=== PATIENT | male | born 1960 | race Caucasian/White ===

== ENCOUNTER 2017-12-09 23:30 | Emergency (ER) | payer OTHER ==
[~2017-12-09] VITALS: Ht 177.8 cm; Wt 97.5 kg
[~2017-12-09 23:30] MED LIST: ATENOLOL25 M1 PO; AUGMENTIN 875 M1 TAB PO; CITALOPRAM HBR20 MG PO; HYDROXYZINE50 MG PO; KEFLEX500 MG PO; LIPITOR10 M1 PO; LISINOPRIL30 M1 PO; SMZ-TMP 800 MG-1 TAB PO; TRAMADOL50 MG PO
--- NOTE | 2017-12-09 23:35 | ED PSYCHIATRIC COMPLAINT ---
History of Present Illness General Chief Complaint: Psychiatric Related Complaint Stated Complaint: BIBA +SI Source: patient, old records, EMS Exam Limitations: no limitations Vital Signs & Intake/Output Vital Signs & Intake/Output Vital Signs Date Time Temp Pulse Resp B/P B/P Pulse O2 O2 Flow FiO2 Mean Ox Delivery Rate 12/11 0754 98.0 86 18 155/83 98 12/09 2351 98.4 78 16 147/91 98 ED Intake and Output 12/10 0000 12/09 1200 Intake Total Output Total Balance Patient 215 lb Weight Allergies Coded Allergies: NO KNOWN ALLERGIES (11/10/14) Triage Nurses Notes Reviewed? yes Onset: Gradual Duration: week(s):, waxing and waning Timing: recent history Severity: moderate Associated Symptoms: anxiety, suicidal ideation HPI: 56 YO gentleman in prior good health brought in on police PEER for suicidal ideation. Per the medics, his called due to suicidality. He shares, "I am really stressed out... I'm in a bag marriage.... I don't have any money problems... I' ve been drinking just like any 56 year old male...." He denies illicit drugs. Per the medics, he has guns that were removed from the home. He has never been admitted for a psychiatric illness. He is otherwise well. (Darian PHILLIPS,Cornel Dunbar) Reconcile Medications Atenolol 25 MG TABLET 1 TAB PO DAILY BP (Reported) Atorvastatin Calcium (Lipitor) 10 MG TABLET 1 TAB PO DAILY CHOLESTEROL ( Reported) Citalopram Hydrobromide (Citalopram HBr) 20 MG TABLET 1 TAB PO DAILY MENTAL HEALTH (Reported) Lisinopril 30 MG TABLET 2 TAB PO DAILY BP (Reported) (Abbe Turcios MD) Past History Travel History Traveled to [place] past 21 day No Medical History Any Pertinent Medical History? see below for history Neurological: NONE EENT: NONE Cardiovascular: hypertension, hyperlipidemia Respiratory: NONE Gastrointestinal: NONE Hepatic: NONE Renal: NONE Musculoskeletal: NONE Psychiatric: NONE Endocrine: NONE Blood Disorders: NONE Cancer(s): NONE RADIO BROADCASTER/Reproductive: NONE Tetanus Vaccine: 12/07/14 Surgical History Surgical History: N Psychosocial History What is your primary language Croatian Family History Hx Contributory? No (Darian PHILLIPS,Cornel Dunbar) Review of Systems Review of Systems Constitutional: Reports: no symptoms. EENTM: Reports: no symptoms. Respiratory: Reports: no symptoms. Cardiovascular: Reports: no symptoms. GI: Reports: no symptoms. Genitourinary: Reports: no symptoms. Musculoskeletal: Reports: no symptoms. Skin: Reports: no symptoms. Neurological/Psychological: Reports: no symptoms. Hematologic/Endocrine: Reports: no symptoms. Immunologic/Allergic: Reports: no symptoms. All Other Systems: Reviewed and Negative (Darian PHILLIPS,Cornel Dunbar) Physical Exam Physical Exam General Appearance: well developed/nourished, mild distress Head: atraumatic Eyes: Bilateral: normal appearance. Ears, Nose, Throat: normal pharynx, normal ENT inspection, hearing grossly normal Neck: normal inspection, supple Respiratory: normal breath sounds Cardiovascular: regular rate/rhythm Gastrointestinal: soft, non-tender Extremities: normal range of motion Neurological/Psychiatric: no motor/sensory deficits, awake, anxious, oriented x 3 Appearance/Memory/Insight: appropriate insight Behavoir/Eye Contact/Speech: cooperative Thoughts/Hallucinations: no apparent hallucination Skin: intact, normal color, warm/dry SAD PERSONS SAD PERSONS Response Value Male Sex? yes 1 Age <19 or >45 years? yes 1 Depression/Hopelessness? yes 2 Excessive Ethanol/Drug Use? yes 1 Rational Thinking Loss? yes 2 Social Support? has no support 1 Total 8 SAD PERSONS Done? yes (Darian PHILLIPS,Cornel Dunbar) Progress Differential Diagnosis: depression, etoh, bipolar vs other. Plan of Care: Orders Procedure Date/time Status Regular Diet 12/10 B Active EKG 12/10 0002 Active Continuous Observation Monitor 12/10 2335 Active URINE DRUG SCREEN FOR ER ONLY 12/10 2335 Complete ETHANOL 12/10 2335 Complete COMPREHENSIVE METABOLIC PANEL 12/10 2335 Complete CBC WITHOUT DIFFERENTIAL 12/10 2335 Complete ED CRISIS PSYCH CONSULT 12/10 2335 Active Laboratory Tests 12/10/17 0035: Urine Opiates Screen < 100, Methadone Screen < 40, Barbiturate Screen < 60, Ur Phencyclidine Scrn < 6.00, Amphetamines Screen 134, U Benzodiazepines Scrn < 85, Urine Cocaine Screen < 50, Urine Cannabis Screen < 5.00 12/10/17 0027: Anion Gap 13, Estimated GFR > 60, BUN/Creatinine Ratio 14.0, Glucose 130 H, Calcium 9.4, Total Bilirubin 0.4, AST 48, ALT 84 H, Alkaline Phosphatase 72, Total Protein 7.1, Albumin 4.3, Globulin 2.8, Albumin/Globulin Ratio 1.5, CBC w Diff NO MAN DIFF REQ, RBC 4.43 L, MCV 95.5 H, MCH 33.6 H, MCHC 35.2, RDW 13.1 , MPV 8.2, Gran % 72.6, Lymphocytes % 16.5 L, Monocytes % 9.0, Eosinophils % 1.3, Basophils % 0.6, Absolute Granulocytes 4.8, Absolute Lymphocytes 1.1 L, Absolute Monocytes 0.6, Absolute Eosinophils 0.1, Absolute Basophils 0, Serum Alcohol 107.0 Initial ED EKG: pt declines (Darian PHILLIPS,Cornel Dunbar) Departure Departure Condition: Stable Clinical Impression Primary Impression: Depression Secondary Impressions: Alcohol intoxication Referrals: Patricia Griffith MD (PCP/Family) Departure Forms: Customer Survey General Discharge Information Comments pt signed out to dr. turcios 12/10/17, 7am, pending crises evaluation. (Darian PHILLIPS,Cornel Dunbar) Departure Disposition: HOME OR SELF CARE (Kali PHILLIPS,Abbe)
[2017-12-10 00:38] LABS: ABSOLUTE BASOPHIL COUNT 0 /CUMM (0.0-0.2); ABSOLUTE EOSINOPHIL COUNT 0.1 /CUMM (0.0-0.7); ABSOLUTE GRANULOCYTE CT 4.8 /CUMM (1.4-6.5); ABSOLUTE LYMPH COUNT 1.1 /CUMM (1.2-3.4); ABSOLUTE MONOCYTE COUNT 0.6 /CUMM (0.10-0.60); BASOPHIL % 0.6 % (0.0-2.0); EOSINOPHIL % 1.3 % (0-5); GRANULOCYTE % 72.6 % (42.2-75.2); HEMATOCRIT 42.3 % (42-52); MEAN CORPUSCULAR HGB 33.6 PG (27.0-31.0); MEAN CORPUSCULAR HGB CONC 35.2 G/DL (33.0-37.0); MEAN CORPUSCULAR VOLUME 95.5 FL (80.0-94.0); MEAN PLATELET VOLUME 8.2 FL (7.4-10.4); PLATELET COUNT 259 /CUMM (130-400); RBC DISTRIBUTION WIDTH 13.1 % (11.5-14.5); RED BLOOD CELL CT 4.43 /CUMM (4.70-6.10); WHITE BLOOD CELL COUNT 6.6 /CUMM (4.8-10.8)
[2017-12-10 08:54] VITALS: BP 155/83
--- NOTE | 2017-12-10 12:34 | ED PSYCH CRISIS CONSULTATION ---
Crisis Consult Basic Assessment Date of Consult: 12/10/17 Responsible Person/Accompanied By: self/biba/[employer] PE[employer] Insurance Authorization: Insurance #1: Insurance name: OUT OF STATE KEITH Phone number: Policy number: [id number] Group number: [id number] Authorization number: ED Provider: Patient's ED Provider: Darian PHILLIPS,Cornel Dunbar Primary Care Physician: Patient's PCP: Patricia Griffith MD PCP's Current Psychiatrist: none Chief Complaint: Psychiatric Related Complaint Patient's Quote: My marriage is falling apart Present Illness: Pt is a 56 yo male biba last evening on a [employer] PE[employer]. PEER documents pt stated threats to shoot himself with his gun. Pt reports PD removed the guns from the home. Pt is denying SI but states he is tired and stressed with work and marital problems. Pt reports no prior mental health tx. 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 Pt also reports recent conflict with and worried they may divorce even though he wants the marriage to improve. Pt reports this is his 2nd marriage and they have been together since 2003. He reports having no children. Pt reports they have recently begun discussing divorce and seeing a marriage. Pt reports daily etoh use 2-3 drinks and denies substance use. Pt jokes "I'm a good conservative French boy". Pt denies HI/AH/VH. C-SSRS completed. Pt presents as calm, cooperative, tired, amiable and OX3. Case reviewed with Dr Jauregui. Recommendation for outpatient tx. Pt agrees and provided with contact information for [facility] and [facility] and he will follow up to make arrangement. Pt also aware of plan and in agreement. She will transport pt home. Patient's Address: [address] [place] [id number] Other Phone Number: Who Do You Live With? Significant Other Family/Informants Interviewed: collateral provided by pt Brii [phone]. She reports pt has been very stressed about working and they have been arguing alot lately. her report of recent events are consistent with his. She reports thay had recent fight and were trying to reconcile last evening when he "exploding" and began making threats to harm self. She reports he has made similiar threats when stressed but last night was more concerning so she called 911. She reports he is a daily drinker and etoh is always involved when he has had similiar episodes. She reports willingness to have pt retun home and not concerned about his or her safety. She reports willingness to attend marriage counseling. Allergies - Coded Allergies: NO KNOWN ALLERGIES (11/10/14) Current Medications - Scheduled Medications Atenolol 25 MG TABLET 1 TAB PO DAILY BP (Reported) Entered as Reported by Abdulkadir Voss on 11/09/14 1038 Last Taken: At an unknown date and time Atorvastatin Calcium (Lipitor) 10 MG TABLET 1 TAB PO DAILY CHOLESTEROL ( Reported) Entered as Reported by Abdulkadir Voss on 11/09/14 1038 Last Taken: At an unknown date and time Citalopram Hydrobromide (Citalopram HBr) 20 MG TABLET 1 TAB PO DAILY MENTAL HEALTH (Reported) Entered as Reported by Abdulkadir Voss on 11/09/14 1038 Last Taken: At an unknown date and time Lisinopril 30 MG TABLET 2 TAB PO DAILY BP (Reported) Entered as Reported by Abdulkadir Voss on 11/09/14 1039 Last Taken: At an unknown date and time Past History Past Medical History Neurological: NONE EENT: NONE Cardiovascular: hypertension, hyperlipidemia Respiratory: NONE Gastrointestinal: NONE Hepatic: NONE Renal: NONE Musculoskeletal: NONE Psychiatric: NONE Endocrine: NONE Blood Disorders: NONE Cancer(s): NONE ROUGE MIXER/Reproductive: NONE Past Surgical History Surgical History: none Psychosocial History Strengths/Capabilities: pt medical accounting clerk at [employer] Psychiatric Treatment History Psych Treatment Psychiatric Treatment No Inpatient Treatment No Outpatient Treatment No Substance Use/Abuse History Drug Use/Abuse Substances Used/Abused Yes Substance Used/Abused Alcohol Last Used last night How much used/taken 2-3 drinks How often daily For how long yrs Substance Abuse Treatment Substance Abuse Treatment Past Substance Abuse [place] No Inpatient Treatment No Outpatient Treatment No Comments: pt reports daily 2-3 drinks. pt denies substance use. Pt aware he should reduce etoh use Current Mental Status Mental Status Orientation: Person, Place, Situation Affect: WNL Speech: WNL Neuro-vegetative: Sleep Disturbance Appearance Appearance- Dress/Hygiene: hospital scrubs; adequately groomed; friendly; good eye contact Behaviors Thought Process: WNL Thought Content: WNL Memory: WNL Insight: Fair SI/HI Risk Assessment Past Suicidal Ideation/Attempts No Current Suicidal Ideation/Att No Past Homicidal Ideation/Att: No Current Homicidal Ideation/Attempts No Degree of Intent: None Gravely Disabled: Poor Impulse Control, Poor Judgment Risk Factors: access to lethal means, substance abuse, male Lethality Ratin PTSD Checklist PTSD Done? patient declined ED Management Sitter: Yes Restraints: No DSM5/PS Stressors/Medical Prob Diagnosis' (DSM 5, Stressors, Medical): Unspecified Depression F32.9 Alcohol Use D/O F10.20 marital conflict Current GAF: 40 Comments: pt denies SI/HI. Pt reports sadness related to difficulty with marriage. Pt wants to make marriage work but not sure it will get better. Departure Disposition Psych Medical Clearance Date: 12/10/17 Medically Cleared at: 0945 Time Started: 944 Time Ended: 1030 Psychiatrist Consulted: Cornel Jauregui MD Date Disposition Established: 12/10/17 Time Disposition Established: 1030 Plan for Disposition - Modality: Outpatient Facility: Patient to Arrange Rationale for Disposition: pt reports interest in marriage counseling as well as [employer] and psychiatrist. Pt provided contact information for [facility] and [facility]. Pt will make arrangements. Referrals Patricia Griffith MD (PCP/Family)
== END 2017-12-10 11:12 ==
LOC: ERH 23:30
PROVIDERS: Pediatrics
DX: F32.9 Major depressive disorder, single episode, unspecified (principal); F10.129 Alcohol abuse with intoxication, unspecified; I10 Essential (primary) hypertension; E78.5 Hyperlipidemia, unspecified
CPT/HCPCS: 80307; G0463; G0480